=== PATIENT | female | born 1960 | race Two or more races ===

== ENCOUNTER → 2017-10-12 | Outpatient (CLI) | payer OTHER | END | disposition home or self-care (01) | LOC: HKI 10:01 | DX: Z09 Encounter for follow-up examination after completed treatment for conditions other than malignant neoplasm (principal); I10 Essential (primary) hypertension; Z96.643 Presence of artificial hip joint, bilateral; Z82.49 Family history of ischemic heart disease and other diseases of the circulatory system | CPT/HCPCS: 73502 ==

== ENCOUNTER 2018-08-26 08:54 | Day surgery (SDC) | payer OTHER ==
[2018-08-26] MEDS ORDERED: MIDAZOLAM 1 MG/ML 2 ML INJ ×2 (11:23)
[2018-08-26] MEDS ORDERED: FENTAnyl 50 MCG/ML VIAL (11:23)
== END 2018-08-26 13:11 | disposition home or self-care (01) ==
LOC: GIL 08:54
DX: Z12.11 Encounter for screening for malignant neoplasm of colon (principal); K64.8 Other hemorrhoids; Z86.010 Personal history of colon polyps
CPT/HCPCS: 45378